=== PATIENT | male | born 1960 | race African-American/Black ===

== ENCOUNTER 2017-04-23 11:22 | Emergency (ER) | payer SELFPAY | END 2017-04-23 12:41 | disposition home or self-care (01) | LOC: ER 12:41 | DX: J02.9 Acute pharyngitis, unspecified (principal); M79.1 Myalgia; R05 Cough; R11.0 Nausea; K21.9 Gastro-esophageal reflux disease without esophagitis; I10 Essential (primary) hypertension; G89.29 Other chronic pain; F12.10 Cannabis abuse, uncomplicated | CPT/HCPCS: 99283 ==